=== PATIENT | male | born 1970 | race Caucasian/White ===

== ENCOUNTER → 2018-09-27 | Outpatient (CLI) | payer SELFPAY ==
--- NOTE | 2018-09-28 16:18 | PCVCIMAG ---
APPROVED REPORT Study performed: 09/27/2018 15:54:58 EXAM: Comprehensive 2D, Doppler, and color-flow Echocardiogram Patient Location: Echo lab Status: routine BSA: 2.44 HR: 66 bpmBP: 176/92 mmHg Rhythm: NSR Other Information Study Quality: Adequate Technically limited study due to body habitus, smoking. Risk Factors: Cardiac Risk Factors: HTN, Smoking Indications Abnormal ECG Murmur Dyspnea Palpitations 2D Dimensions IVSd: 18.12 (7-11mm) LVDd: 41.51 mm PWd: 16.91 (7-11mm)Ascending Ao: 34.97 (22-36mm) LVDs: 31.44 (25-40mm) Left Atrium: 39.89 (27-40mm) Aortic Root: 32.68 mm LV Single Plane 4CH: 48.45 % LV Single Plane 2CH: 48.09 % Biplane EF: 49.1 % Volumes Left Atrial Volume (Systole) Single Plane 4CH: 91.23 mLSingle Plane 2CH: 82.04 mL LA ESV Index: 37.00 mL/m2 Aortic Valve AoV Peak Louie.: 2.12 m/s AO Peak Gr.: 17.98 mmHgLVOT Max P.08 mmHg LVOT Max V: 1.73 m/s Mitral Valve E/A Ratio: 1.4 MV Decel. Time: 256.99 ms MV E Max Louie.: 1.14 m/s MV A Louie.: 0.79 m/s IVRT: 110.73 ms Pulmonary Valve PV Peak Louie.: 1.18 m/sPV Peak Gr.: 5.57 mmHg Pulmonary Vein P Vein S: 0.29 m/sP Vein A: 0.31 m/s P Vein D: 0.45 m/sP Vein A Dur.: 110.7 msec P Vein S/D Ratio: 0.64 Tricuspid Valve TR Peak Louie.: 2.61 m/s TR Peak Gr.: 27.22 mmHg Left Ventricle The left ventricle is normal size. There is normal LV segmental wall motion. Moderate to severe concentric left ventricular hypertrophy. HOCM with increased LVOT louie rest- 1.7 m/s and peak gradient 12 mmHg. LVOT w/ valsalva peak louie- 3.2 m/s and peak gradient 41 mmHg. LVOT w/ valsalva Left ventricular systolic function is borderline lower limits of normal. LVEF is 50%. Grade II - pseudonormal filling dynamics. Right Ventricle The right ventricle is normal size. The right ventricular systolic function is normal. Atria Left atrium is mildly dilated. The right atrium size is normal. Aortic Valve The aortic valve is normal in structure. No aortic regurgitation is present. There is no aortic valvular stenosis. Mitral Valve The mitral valve is normal in structure. Mild mitral regurgitation. No evidence of mitral valve stenosis. Tricuspid Valve The tricuspid valve is normal in structure. Trace tricuspid regurgitation with PAP of 34 mmHg. Pulmonic Valve The pulmonary valve is normal in structure. There is no pulmonic valvular regurgitation. Great Vessels The aortic root is normal in size. IVC is normal in size and collapses >50% with inspiration. Pericardium There is no pericardial effusion. There is no pleural effusion. <Conclusion> The left ventricle is normal size. Moderate to severe concentric left ventricular hypertrophy. HOCM with increased LVOT louie rest- 1.7 m/s and peak gradient 12 mmHg. LVOT w/ valsalva peak louie- 3.2 m/s and peak gradient 41 mmHg. LVOT w/ valsalva Left ventricular systolic function is borderline lower limits of normal. LVEF is 50%. The right ventricle is normal size. Left atrium is mildly dilated. The right atrium size is normal. The aortic valve is normal in structure. Mild mitral regurgitation. Trace tricuspid regurgitation with PAP of 34 mmHg. The aortic root is normal in size. There is no pericardial effusion.
== END | disposition home or self-care (01) ==
LOC: PCVCIMAG 15:58
PROVIDERS: ATTEND Family Medicine
DX: I34.0 Nonrheumatic mitral (valve) insufficiency (principal); I11.9 Hypertensive heart disease without heart failure; R06.02 Shortness of breath; R94.31 Abnormal electrocardiogram [ECG] [EKG]
CPT/HCPCS: 93306